=== PATIENT | male | born 1965 | race Caucasian/White ===

== ENCOUNTER 2018-04-30 08:26 | Inpatient (IN) | payer BC, OTHER ==
[~2018-04-30] VITALS: Ht 180.3 cm; Wt 90.4 kg
[2018-04-30] MEDS ORDERED: SODIUM CHLORIDE 0.9% 1,000 ML IV ONE (08:43)
[2018-04-30] MEDS ORDERED: ONDANSETRON HCL 4 MG/2 ML VIAL IV ONE (08:45)
[2018-04-30] MEDS ORDERED: MORPHINE SULFATE 4 MG/ML SYR/VIAL IV ONE (08:45)
[2018-04-30 09:00] LABS: Basophils # (auto) 0 uL; Basophils % (auto) 0.4 % (0.0-2.0); Eosinophils # (auto) 0.1 uL; Eosinophils % (auto) 0.5 % (0.0-7.0); Hematocrit 49.1 % (41.0-53.0); Hemoglobin 16.7 g/dL (13.5-17.5); Lymphocytes # (auto) 0.7 uL; Mean Corpuscular Hemoglobin 30.9 pg (28.0-32.0); Mean Corpuscular Volume 90.9 fL (80.0-100.0); Monocytes # (auto) 0.4 uL; Monocytes % (auto) 3.6 % (0.0-12.0); Neutrophils % (auto) 89.5 % (37.0-80.0); Nucleated Red Blood Cells % 0.2 %; Platelet Count (auto) 248 10^3/uL (140-450); Red Cell Distribution Width 14.1 % (11.8-14.3); White Blood Cell 11.1 10^3/uL (4.4-10.8)
[2018-04-30 09:15] LABS: Albumin 3.9 g/dL (3.4-5.0); Calcium 9.2 mg/dL (8.5-10.1)
[2018-04-30 09:19] LABS: Bilirubin, Total 1.6 mg/dL (0.2-1.0); Total Protein 7.5 g/dL (6.4-8.2)
[2018-04-30 09:24] LABS: Lipase 238 U/L (73-393)
[2018-04-30] MEDS ORDERED: PIPERACILLIN-TAZOB 3.375GM 100 ML IV ONE (10:00)
[2018-04-30] MEDS ORDERED: VANCOMYCIN 1GM/250ML 250 ML IV ONE (10:00)
[2018-04-30] MEDS ORDERED: VANCOMYCIN PER PHARMACY 0 MG IV SCH (11:30)
[2018-04-30] MEDS ORDERED: PANTOPRAZOLE 40 MG/10 ML VIAL IV ONE (11:30)
[2018-04-30] MEDS ORDERED: LEVOFLOXACIN 500MG 100 ML IV ONE (11:30)
[2018-04-30] MEDS ORDERED: TEMAZEPAM 15 MG CAP PO PRN (11:45)
[2018-04-30] MEDS ORDERED: ONDANSETRON HCL 4 MG/2 ML VIAL IV PRN (11:45)
[2018-04-30] MEDS ORDERED: MORPHINE SULFATE 4 MG/ML SYR/VIAL IV PRN (11:45)
[2018-04-30] MEDS ORDERED: ACETAMINOPHEN 325 MG TAB PO PRN (11:45)
[2018-04-30] MEDS: SODIUM CHLORIDE 0.9% 1,000 ML IV SCH ×2 (11:59→22:17)
[2018-04-30] MEDS: HYDROcodone-ACET 5/325MG TAB PO PRN (12:05)
[2018-04-30 13:30] VITALS: BP 136/102
[2018-04-30 16:20] VITALS: BP 121/74
[2018-04-30 19:16] LABS: Urine Bacteria NONE SEEN /hpf (None Seen); Urine Blood Negative /uL (Negative); Urine Specific Gravity 1.019 (1.001-1.035); Urine WBC 1 /hpf (0 - 3)
[2018-04-30] MEDS: FAMOTIDINE 20 MG TAB PO SCH (21:19)
[2018-04-30 22:00] VITALS: BP 124/85
[2018-04-30] MEDS ORDERED: ATORVASTATIN 20 MG TAB PO SCH (22:00)
[2018-04-30] MEDS ORDERED: VANCOMYCIN 1,250 MG in D5W 5% 250 ML IV SCH (23:00)
[2018-05-01] MEDS: HYDROcodone-ACET 5/325MG TAB PO PRN (00:33)
[2018-05-01] MEDS: SODIUM CHLORIDE 0.9% 1,000 ML IV SCH ×2 (04:11→09:55)
[2018-05-01 05:52] VITALS: BP 134/81
[2018-05-01 06:57] LABS: Basophils # (auto) 0 uL; Basophils % (auto) 0.5 % (0.0-2.0); Eosinophils # (auto) 0.1 uL; Eosinophils % (auto) 1.4 % (0.0-7.0); Hematocrit 42.8 % (41.0-53.0); Hemoglobin 14.4 g/dL (13.5-17.5); Mean Corpuscular Hemoglobin 30.9 pg (28.0-32.0); Mean Corpuscular Hgb Conc. 33.8 g/dL (32.0-36.0); Mean Corpuscular Volume 91.5 fL (80.0-100.0); Monocytes # (auto) 0.3 uL; Monocytes % (auto) 5.7 % (0.0-12.0); Neutrophils # (auto) 4.6 uL; Neutrophils % (auto) 75.4 % (37.0-80.0); Nucleated Red Blood Cells % 0.3 %; Platelet Count (auto) 212 10^3/uL (140-450); Red Blood Cells 4.68 10^6/uL (4.5-5.90); Red Cell Distribution Width 14.2 % (11.8-14.3)
[2018-05-01 07:22] LABS: Amylase 37 U/L (25-115); Lipase 215 U/L (73-393)
[2018-05-01 07:25] LABS: Albumin 3.1 g/dL (3.4-5.0); Calcium 7.9 mg/dL (8.5-10.1)
[2018-05-01 07:28] LABS: Bilirubin, Total 1.6 mg/dL (0.2-1.0); Total Protein 5.8 g/dL (6.4-8.2)
[2018-05-01 09:00] VITALS: BP 143/89
[2018-05-01] MEDS: FAMOTIDINE 20 MG TAB PO SCH (09:55)
[2018-05-01] MEDS ORDERED: LEVOFLOXACIN 500MG 100 ML IV SCH (10:00)
[2018-05-01] MEDS ORDERED: MULTIPLE VITAMIN TAB PO SCH (10:00)
[2018-05-01] MEDS ORDERED: PANTOPRAZOLE 40 MG/10 ML VIAL IV SCH (10:00)
[2018-05-01 12:00] VITALS: BP 136/88
== END 2018-05-01 12:30 | disposition home or self-care (01) | DRG 918 ==
LOC: ER 08:26 → OVERFLOW 11:36 → EAST 13:06
PROVIDERS: ADMIT Internal Medicine; ATTEND Internal Medicine
DX: T62.91XA Toxic effect of unspecified noxious substance eaten as food, accidental (unintentional), initial encounter (principal); E44.0 Moderate protein-calorie malnutrition; A08.4 Viral intestinal infection, unspecified; E78.5 Hyperlipidemia, unspecified; N18.2 Chronic kidney disease, stage 2 (mild); E86.0 Dehydration; I12.9 Hypertensive chronic kidney disease with stage 1 through stage 4 chronic kidney disease, or unspecified chronic kidney disease; Z68.27 Body mass index [BMI] 27.0-27.9, adult; Z82.71 Family history of polycystic kidney; Z90.49 Acquired absence of other specified parts of digestive tract; Y92.89 Other specified places as the place of occurrence of the external cause
CPT/HCPCS: 36415; 71045; 74176; 80053; 81001; 82150; 83605; 83690; 84484; 85025; 87040; 87045; 87086; 87493; 87899; 93005; C9113; G0378; J1956; J2405; J2543; J7060